=== PATIENT | male | born 1950 | race Caucasian/White ===

== ENCOUNTER → 2017-05-01 | Outpatient (CLI) | payer BC, OTHER ==
--- NOTE | 2017-05-01 15:54 | MRI ---
MRI right knee without contrast Indication: Right knee pain and swelling Comparison: None Technique: Multiplanar multi sequence MR images of the right knee were obtained without contrast. Findings: There is linear intermediate intrasubstance signal within the body and posterior horn of th e medial meniscus with extension to the meniscal free edge at the posterior junctional zone (for exam ple coronal PD image 21), consistent with horizontal tear. No lateral meniscal tear identified. There is [id number] chondrosis of the medial femorotibial compartment and mild chondrosis of the lat eral femorotibial and patellofemoral compartments, without evidence for full-thickness chondral defec t or subchondral marrow signal abnormality. Tiny marginal osteophytes are noted. The ACL, PCL, mcl, major lateral stabilizers, and extensor mechanism are intact, although there is mi ldly increased signal within the proximal patellar tendon. Edema about the MCL is likely reactive, re lated to the medial meniscal pathology. There is mild distal popliteus tendinosis. Small popliteal cy st is noted. No significant joint effusion. There is nonspecific anterior knee subcutaneous edema, wi thout discrete collection. Impression: 1. Mild tricompartmental degenerative changes of the knee, worst in the medial compartment. 2. Horizontal tear of the medial meniscal body and posterior horn, possibly degenerative. 3. Mild proximal patellar and distal popliteus tendinosis. 4. Small popliteal cyst Reported By:
== END | disposition home or self-care (01) | DRG 556 ==
LOC: RAD 13:14
PROVIDERS: ATTEND Internal Medicine
DX: M25.561 Pain in right knee (principal); S83.241A Other tear of medial meniscus, current injury, right knee, initial encounter; X58.XXXA Exposure to other specified factors, initial encounter; M17.11 Unilateral primary osteoarthritis, right knee; M67.863 Other specified disorders of tendon, right knee; M71.21 Synovial cyst of popliteal space [Baker], right knee
CPT/HCPCS: 73721